=== PATIENT | male | born 1990 | race African-American/Black ===

== ENCOUNTER 2016-08-14 17:32 | Emergency (ER) | payer SELFPAY ==
[~2016-08-14] VITALS: Ht 167.6 cm; Wt 54.4 kg
[2016-08-14] MEDS ORDERED: Dexamethasone 4mg/ml vial IM ONE (18:00)
[2016-08-14] MEDS ORDERED: Lidocaine 2% Visc 15ml soln ORAL ONE (18:00)
--- NOTE | 2016-08-14 18:12 | Emergency Room Report ---
History of Present Illness General Chief Complaint: Sore Throat Source: Patient Present Illness HPI 26 YO Male presents to the ED c/o : sore throat, tonsillar swelling, and fevers x 3 days. pt. was seen at urgent care today for STD and sore throat. pt. reports receiving an injection of abx unknown name, and prescribed amoxicillin, doxycycline, and Zantac. Pt reports intermittent fevers and chills, reports taking Tylenol at 4am today. pt. states he has not taken any of the prescribed oral medications yet. he wants to be evaluated for strep. Denies rashes Denies CP, Palpitations, LOC, AMS, dizziness, Changes in Vision, Sensation, paresthesias, or a sudden severe headache. Allergies: Coded Allergies: No Known Allergies (Unverified , 08/14/16) Patient History Past Medical History: see triage record Past Surgical History: none Pertinent Family History: none Immunizations: UTD Reviewed Nursing Documentation: PMH: Agreed, PSxH: Agreed Nursing Documentation-PMH Past Medical History: No Stated History Review of Systems All Other Systems: negative except mentioned in HPI Physical Exam Vital Signs Date Time Temp Pulse Resp B/P Pulse Ox O2 Delivery O2 Flow Rate FiO2 08/14/16 17:36 101.1 117 20 119/81 97 Room Air Sp02 EP Interpretation: reviewed, abnormal - pt is febrile and tachycardic General Appearance: alert, GCS 15, non-toxic, mild distress Head: normocephalic, atraumatic Eyes: bilateral eye PERRL, bilateral eye normal inspection ENT: hearing grossly normal, normal pharynx, no angioedema, normal voice, TMs + canals normal, uvula midline, moist mucus membranes, tonsillar swelling - Bilateral tonsillar swelling, pharyngeal erythema Neck: full range of motion, no meningismus, no bony tend, supple/symm/no masses Respiratory: lungs clear, normal breath sounds, speaking full sentences Cardiovascular #1: regular rate, rhythm, no edema Musculoskeletal: back normal, gait/station normal, normal range of motion, non- tender Neurologic: alert, oriented x3, responsive, motor strength/tone normal, sensory intact, speech normal Psychiatric: judgement/insight normal, memory normal, mood/affect normal Skin: normal color, no rash, warm/dry, well hydrated Lymphatic: other - sub parotid LAD bilaterally Medical Decision Making PA Attestation Dr. Navarrete is my supervising Physician whom patient management has been discussed with. Diagnostic Impression: Primary Impression: Streptococcus pharyngitis ER Course Pt. presents to the ED c/o : sore throat, tonsillar swelling, and fevers x 3 days. pt. was seen at urgent care today for STD and sore throat. pt. reports receiving an injection of abx unknown name, and prescribed amoxicillin, doxycycline, and Zantac. Pt reports intermittent fevers and chills, reports taking Tylenol at 4am today. pt. states he has not taken any of the prescribed oral medications yet. he wants to be evaluated for strep. Ddx considered but are not limited to: Pharyngitis, Strep, GLUING PRESSMAN, ludwigs angina, URI Vital signs: are WNL, pt. is febrile at 101.1, and tachycardic at 118 bpm. H&PE are most consistent with: pharyngitis presumed strep. no evidence at this time to suggest GLUING PRESSMAN, tonsils are swollen bilaterally, no unilateral soft tissue swelling. ORDERS: None required at this time as the diagnosis is clinical ED INTERVENTIONS: -Tylenol PO -Decadron 8mg IM -Viscous Lidocaine 2 % 20 Ml PO --D/W pt. that amoxicillin is the treatment of choice for strep pharyngitis. suggested that he begin taking his previously prescribed medications as soon as possible. - Return precautions were discussed with the pt. DISCHARGE: At this time pt. is stable for d/c to home. Will provide printed patient care instructions, and any necessary prescriptions. Care plan and follow up instructions have been discussed with the patient prior to discharge. Last Vital Signs Date Time Temp Pulse Resp B/P Pulse Ox O2 Delivery O2 Flow Rate FiO2 08/14/16 17:36 101.1 117 20 119/81 97 Room Air Disposition: HOME, SELF-CARE Condition: Stable Scripts Acetaminophen* (TYLENOL EXTRA STRENGTH*) 500 Mg Tablet 500 MG ORAL Q6H Y for Mild Pain/Temp > 100.5, #30 TAB 0 Refills Prov: Soila Watson 08/14/16 Hydrocodone Bit/Acetaminophen 5-325* (NORCO 5-325*) 1 Each Tablet 1 TAB ORAL Q6H Y for For Pain, #4 TAB 0 Refills Prov: Soila Watson 08/14/16 Lidocaine HCl (Lidocaine HCl Viscous) 100 Ml Solution 20 ML PO QID, #200 ML Prov: Soila Watson 08/14/16 Referrals: NOT CHOSEN [facility]/MD,REFERRING (PCP) Patient Instructions: Strep Throat Additional Instructions: Take medications as directed. Follow up with PCP in 3 days Return sooner to ED if new symptoms occur, or current symptoms become worse. Do not drink alcohol, drive, or operate heavy machinery while taking [place] as this may cause drowsiness. - Please note that this Emergency Department Report was dictated using [employer] quality manager technology software, occasionally this can lead to erroneous entry secondary to interpretation by the dictation equipment. Soila Watson Aug 14, 2016 18:12
[2016-08-14] MEDS ORDERED: LIDOCAINE VISCO20 ML PO (18:13)
[2016-08-14] MEDS ORDERED: TYLENOL EXTRA500 MG ORAL (18:13)
[2016-08-14] MEDS ORDERED: NORCO 5-325 TA1 EACH ORAL (18:13)
[2016-08-14 18:30] VITALS: BP 119/81
== END 2016-08-14 18:30 | disposition home or self-care (01) ==
LOC: EMR 17:46
DX: J02.0 Streptococcal pharyngitis (principal); R50.9 Fever, unspecified; R00.0 Tachycardia, unspecified
CPT/HCPCS: 96372; 99284; J1100